=== PATIENT | male | born 1985 | race Caucasian/White ===

== ENCOUNTER 2020-05-20 21:07 | Emergency (ER) | payer MEDICAID, OTHER ==
[~2020-05-20] VITALS: Ht 172.7 cm; Wt 74.8 kg
[2020-05-20 22:40] VITALS: BP 140/88
[2020-05-21] MEDS ORDERED: HYDROcodone-ACET 7.5/325MG TAB PO ONE (01:00)
[2020-05-21] MEDS ORDERED: IBUPROFEN 800 MG TAB PO ONE (01:15)
== END 2020-05-21 03:15 | disposition home or self-care (01) ==
LOC: ER 21:11
DX: S52.611A Displaced fracture of right ulna styloid process, initial encounter for closed fracture (principal); S62.001A Unspecified fracture of navicular [scaphoid] bone of right wrist, initial encounter for closed fracture; X58.XXXA Exposure to other specified factors, initial encounter; Y93.89 Activity, other specified; Y92.89 Other specified places as the place of occurrence of the external cause; Y99.8 Other external cause status
CPT/HCPCS: 73110